=== PATIENT | male | born 2005 | race Two or more races ===

== ENCOUNTER 2025-03-17 | Emergency (ER) | payer OTHER ==
[~2025-03-17] VITALS: Ht 162.6 cm; Wt 71.4 kg
[2025-03-17 00:20] VITALS: BP 127/80; PULSE 116; RESP 20; TEMP 98.8; O2SAT 97
== END 2025-03-17 02:14 | disposition home or self-care (01) ==
LOC: EMS 00:02
DX: S00.83XA Contusion of other part of head, initial encounter (principal); S00.31XA Abrasion of nose, initial encounter; F10.129 Alcohol abuse with intoxication, unspecified; X58.XXXA Exposure to other specified factors, initial encounter; Y93.89 Activity, other specified; Y92.89 Other specified places as the place of occurrence of the external cause; Y99.8 Other external cause status; Y90.9 Presence of alcohol in blood, level not specified
CPT/HCPCS: 99283; Z7502